=== PATIENT | female | born 1975 | race Caucasian/White ===

== ENCOUNTER 2024-03-02 18:02 | Emergency (ER) | payer MEDICAID ==
[~2024-03-02] VITALS: Ht 172.7 cm; Wt 66.2 kg
[2024-03-02] MEDS: HYDROCODONE/APAP 5/325MG TABLET PO ONE (19:30)
[2024-03-02] MEDS ORDERED: HYDROCODONE/APAP 5/325MG TABLET ONE (19:47)
[2024-03-02] MEDS ORDERED: IBUP-1957 PO (20:17)
[2024-03-02] MEDS ORDERED: ACET-868 PO (20:17)
[2024-03-02 22:37] VITALS: BP 111/73; TEMP 98.2; O2SAT 99
== END 2024-03-02 22:37 | disposition home or self-care (01) ==
LOC: ER 18:02
DX: S82.142A Displaced bicondylar fracture of left tibia, initial encounter for closed fracture (principal); S60.212A Contusion of left wrist, initial encounter; F17.200 Nicotine dependence, unspecified, uncomplicated; Z88.8 Allergy status to other drugs, medicaments and biological substances; V22.49XA Other motorcycle driver injured in collision with two- or three-wheeled motor vehicle in traffic accident, initial encounter; Y93.55 Activity, bike riding; Y92.488 Other paved roadways as the place of occurrence of the external cause; Y99.8 Other external cause status
CPT/HCPCS: 73090-TC; 73700-TC

== ENCOUNTER 2024-12-03 12:12 | Emergency (ER) | payer MEDICAID ==
[~2024-12-03] VITALS: Ht 172.7 cm; Wt 67.1 kg
[~2024-12-03 12:12] MED LIST: ACET-868 PO; IBUP-1957 PO
[2024-12-03 12:22] VITALS: TEMP 97.9
[2024-12-03] MEDS ORDERED: ONDANSETRON HCL/PF 4 MG/2 ML VIAL ONE (12:59)
[2024-12-03] MEDS ORDERED: MECLIZINE HCL 25 MG TABLET ONE (12:59)
[2024-12-03 13:03] LABS: PLATELET COUNT (AUTO) 254 K/uL (150-450); RED BLOOD CELL COUNT(AUTO) 3.78 MIL/uL (4.0-5.2); RED CELL DISTRIBUTION WIDTH 12.6 % (11.5-15.0); WHITE BLOOD COUNT (AUTO) 6.2 K/uL (4.3-11.0)
[2024-12-03] MEDS: ONDANSETRON HCL/PF 4 MG/2 ML VIAL IVP ONE (13:05)
[2024-12-03] MEDS: IV NS 0.9% 1,000 ML BAG IV ONE (13:08)
[2024-12-03] MEDS: MECLIZINE HCL 25 MG TABLET PO ONE (13:10)
[2024-12-03 13:15] LABS: CALCIUM, SERUM 8.6 mg/dL (8.5-10.1); CREATININE 0.7 mg/dL (0.6-1.3); SODIUM SERUM 141 mmol/L (136-145); UREA NITROGEN, BLOOD 19 mg/dL (7-18)
[2024-12-03 13:25] LABS: APPEARANCE,URINE CLEAR (CLEAR); BLOOD, URINE 1+ Ery/uL (NEGATIVE); LEUKOCYTE ESTERASE ,URINE 1+ (NEGATIVE); NITRITE, URINE NEGATIVE (NEGATIVE); UGLUCOSE NEGATIVE (NEGATIVE)
[2024-12-03 13:30] LABS: PREGNANCY TEST URINE QUAL NEGATIVE (NEGATIVE)
[2024-12-03] MEDS ORDERED: ONDA4TAB5 PO (13:30)
[2024-12-03] MEDS ORDERED: MECL-159 PO (13:30)
[2024-12-03 14:05] LABS: ADD URINE CULTURE YES; SQUAMOUS EPITHELIAL CELL,UR Few /HPF (None Seen)
[2024-12-03 14:58] VITALS: BP 108/72; O2SAT 98
== END 2024-12-03 14:57 | disposition home or self-care (01) ==
LOC: ER 12:15
DX: R42 Dizziness and giddiness (principal); F17.200 Nicotine dependence, unspecified, uncomplicated; Z90.710 Acquired absence of both cervix and uterus; Z88.8 Allergy status to other drugs, medicaments and biological substances
CPT/HCPCS: 99285; 96374; 70450; 71045; 96361; 93005; 85025; 80048; 84703; 81001; 36415; 84484; 82962; J8597; J2405; J7030; 87086-TC